=== PATIENT | male | born 1970 | race African-American/Black ===

== ENCOUNTER 2020-09-09 19:04 | Emergency (ER) | payer SELFPAY ==
[~2020-09-09] VITALS: Ht 175.3 cm; Wt 104.5 kg
[2020-09-09 19:40] VITALS: BP 175/103
[2020-09-09] MEDS ORDERED: pr (20:05)
[2020-09-09] MEDS ORDERED: PRED20TA PO (20:05)
[2020-09-09] MEDS ORDERED: ACYC400T PO (20:05)
--- NOTE | 2020-09-09 20:05 | ED.ADGEN ---
Past Medical History Past Medical History: Hypertension Past Surgical History: No Surgical History Smoking Status: Current Every Day Smoker Alcohol Use: Occasionally General Adult EDM: Chief Complaint: FACE PROBLEM HPI: HPI: Patient is a 49 year old right-sided facial droop since waking up this morning. Patient states he does not have any pain or vision changes. Patient states he is no hearing loss or tinnitus, sore throat, neck pain, headache or fevers he still feels side of his face and denies any arm or leg weakness. Patient states he did have a little cyst by his ear for about 1 month ago that has been resolving. Review of Systems: Review of Systems: All other systems within normal limits except for as noted in the HPI Allergies: Allergies: Allergies Coded Allergies Type Severity Reaction Last Updated Verified No Known Drug Allergies 09/09/20 No Physical Exam: PE: Constitutional: Well developed, well nourished, no acute distress, non-toxic appearance. [] HENT: Normocephalic, atraumatic, bilateral external ears normal, nose normal. Ear canals without lesion, no pain on movement of the ears. Small cyst just below right earlobe that is mobile and round. No fluctuance. Normal oropharynx, no tonsillar swelling [] Eyes: PERRLA, conjunctiva normal, no discharge. [] Neck: No rigidity, supple, no stridor. No cervical lymphadenopathy [] Cardiovascular: Regular rate and rhythm, brisk cap refill [] Lungs & Thorax: Non labored symmetric respirations, no tachypnea or respiratory distress [] Abdomen: Soft, nondistended. Skin: Warm, dry, no erythema, no rash. [] Back: Unremarkable Extremities: No deformities, range of motion grossly intact, no lower extremity edema [] Neurologic: Alert and oriented X 3, no focal deficits noted., Weakness of right face including forehead. Bilateral upper and lower extremity strength 5 out of 5. No sensory deficits. [] Psychologic: Affect normal, judgement normal, mood normal. [] Current Patient Data: Vital Signs: Vital Signs Date Time Temp Pulse Resp B/P (MAP) Pulse Ox O2 Delivery O2 Flow Rate FiO2 09/09/20 19:10 98.6 86 20 188/114 (138) 99 Room Air 98.6 EKG: EKG: [] Heart Score: Risk Factors: Risk Factors: DM, Current or recent (<one month) smoker, HTN, HLP, family history of CAD, obesity. Risk Scores: Score 0 - 3: 2.5% MACE over next 6 weeks - Discharge Home Score 4 - 6: 20.3% MACE over next 6 weeks - Admit for Clinical Observation Score 7 - 10: 72.7% MACE over next 6 weeks - Early Invasive Strategies Radiology/Procedures: Radiology/Procedures: [] Course & Med Decision Making: Course & Med Decision Making Pertinent Labs and Imaging studies reviewed. (See chart for details) [] Dragon Disclaimer: Dragon Disclaimer: This electronic medical record was generated, in whole or in part, using a voice recognition dictation system. Departure Departure Impression: Primary Impression: Garcia's palsy Disposition: 01 DC HOME SELF CARE/HOMELESS Condition: STABLE Patient Instructions: Garcia's Palsy Additional Instructions: [facility] [address] [place] [address] [facility] [address] [place] [address] [facility] [address] [place] [address] [facility] [address] [place] [address] [facility] [address] [place] [address] [facility] [address] [place] [address] [facility] [address] [place] [address] [facility] [address] [place] [address] [facility] [address] [place] [address] [facility] [address] [place] [address] Scripts Mineral Oil/Petrolatum,White (LUBRICANT EYE OINTMENT) 3.5 Gm Oint...g. 3.5 GM OP QHS for eye protection for 20 Days, #1 MISC Prov: SHAWANDA RUBIN MD 09/09/20 Dextran 70/Hypromellose (ARTIFICIAL TEARS EYE DROPS) 15 Ml Drops 1 DROP EACHEYE QID for 20 Days, #30 ML 0 Refills Prov: SHAWANDA RUBIN MD 09/09/20 Acyclovir (ACYCLOVIR) 400 Mg Tablet 1 TAB PO 5XDAY for antiviral for 7 Days, #35 TAB Prov: SHAWANDA RUBIN MD 09/09/20 Prednisone (PREDNISONE) 20 Mg Tablet 3 TAB PO DAILY for steroid for 7 Days, #21 TAB Prov: SHAWANDA RUBIN MD 09/09/20 [pr] No Conflict Check Prov: SHAWANDA RUBIN MD 09/09/20 SHAWANDA RUBIN MD Sep 09, 2020 20:05
[2020-09-09] MEDS ORDERED: [UNRECOGNIZED DRUG - CODE] OP (20:14)
[2020-09-09] MEDS ORDERED: DEXT15DR5 EACHEYE (20:14)
== END 2020-09-09 20:58 | disposition home or self-care (01) ==
LOC: ER 19:04
DX: G51.0 Bell's palsy (principal); I10 Essential (primary) hypertension; F17.200 Nicotine dependence, unspecified, uncomplicated
CPT/HCPCS: 99283